=== PATIENT | female | born 1990 | race Caucasian/White ===

== ENCOUNTER 2018-09-13 05:27 | Day surgery (SDC) | payer OTHER ==
[2018-09-12 08:45] VITALS: BMI 27.4
[2018-09-13] MEDS ORDERED: LIDOCAINE HCL/PF 2% SDV 5ML VIAL ONE (15:35)
[2018-09-13] MEDS ORDERED: PROPOFOL 20 ML ONE (15:35)
[2018-09-13] MEDS ORDERED: MIDAZOLAM HCL 2 MG/2 ML SINGLE DOSE VIAL ONE (15:36)
--- NOTE | 2018-09-13 15:41 | HP ---
Past Medical History - Primary Care Physician PCP:: Jordi Napoles - Admission Chief Complaint: 28yo P0 with enlarging uterine mass, likely submucous myoma, admitted for hysteroscopy and excision of myoma. 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: Alzheimer's, CVA, Dementia, Migraine, Multiple Sclerosis, Peripheral Neuropathy, Parkinson's, Seizure, Syncope, TIA, Vertigo, Other Cardiovascular: No: AFIB, Aneurysm, Aortic Insufficiency, Aortic Stenosis, CAD, CHF, Deep Vein Thrombosis, HTN, Hyperlipdemia, [place], Mitral Insufficiency, Mitral Stenosis, Murmur, Pulmonary Hypertension, Other Pulmonary: No: Asthma, Bronchitis, Cancer, COPD, O2 Dependent, Pneumonia, Previously Intubated, Pulmonary Embolus, Pulmonary Fibrosis, Sleep Apnea, Other Gastrointestinal: No: Ascites, Cancer, Constipation, Crohn's Disease, Diverticulitis, Diverticulosis, Esophageal Varices, Gastritis, GERD, GI Bleed, Hemorrhoids, Hiatal Hernia, Inflamatory Bowel Disease, Irritable Bowel Disease, Pancreatitis, Peptic Ulcer Disease, Ulcerative Colitis, Other Hepatobiliary: No: Cirrhosis, Cholelithiasis, Cholecystitis, Choledocholithiasis , Hepatitis A, Hepatitis B, Hepatitis C, Other Renal/: No: Renal Failure, Renal Inusuff, BPH, Cancer, Hematuria, Hemodialysis , Neurogenic Bladder, Renal Calculi, UTI, Other Reproductive: Yes: Fibroids ...: 0 ...Para: 0 Heme/Onc: No: Anemia, B12 Deficiency, Bleeding Disorder, Cancer, Current Chemotherapy, Current Radiation Therapy, Hemochromatosis, Hypercoaguable State, Myeloproliferative Synd, Sickle Cell Disease, Sickle Cell Trait, Thrombocytopenia, Other Infectious Disease: No: AIDS, C-Diff, Herpes Zoster, HIV, MRSA, STD's, Tuberculosis, VREF, Other Psych: No: Addictions, Anxiety, Bipolar, Depression, Panic, Psychosis, Schizophrenia, Other Rheumatology: No: Fibromyalgia, Gout, Lupus, Rheumatoid Arthritis, Sarcoidosis, Vasculitis, Other ENT: No: Allergic Rhinitis, Sinusitis, Other Endocrine: No: Ricky's Disease, Livingston's Disease, Diabetes Insipidus, Diabetes Mellitus, Hyperparathyroidism, Hyperthyroidism, Hypothyroidism, Osteopenia, SIADH, Other Dermatology: No: Basal Cell, Cellulitis, Eczema, Melanoma, Psoriasis, Squamous Cell, Other - Past Surgical History Hx Myomectomy: Yes Hx Transabdominal Cerclage: No - Smoking History Smoking history: Never smoked Have you smoked in the past 12 months: No Aproximately how many cigarettes per day: 0 - Alcohol/Substance Use Hx Alcohol Use: No History of Substance Use: reports: None - Social History Usual Living Arrangement: Yes: Alone ADL: Independent History of Recent Travel: No Home Medications - Allergies Allergies/Adverse Reactions: Allergies Allergy/AdvReac Type Severity Reaction Status Date / Time No Known Drug Allergies Allergy Verified 09/13/18 15:06 - Home Medications Home Medications: Ambulatory Orders NK [No Known Home Medication] 09/12/18 Family Disease History - Family Disease History Family History: Unremarkable Review of Systems - Review of Systems Constitutional: reports: No Symptoms Eyes: reports: No Symptoms HENT: reports: No Symptoms Neck: reports: No Symptoms Cardiovascular: reports: No Symptoms Respiratory: reports: No Symptoms Gastrointestinal: reports: No Symptoms Genitourinary: reports: No Symptoms Breasts: reports: No Symptoms Reported Musculoskeletal: reports: No Symptoms Integumentary: reports: No Symptoms Neurological: reports: No Symptoms Endocrine: reports: No Symptoms Hematology/Lymphatic: reports: No Symptoms Psychiatric: reports: No Symptoms Pain Intensity: 0 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 Vital Signs: Vital Signs Temperature 98.3 F 09/13/18 15:01 Pulse Rate 65 09/13/18 15:01 Respiratory Rate 20 09/13/18 15:01 Blood Pressure 113/73 09/13/18 15:01 O2 Sat by Pulse Oximetry (%) 100 09/13/18 15:00 Constitutional: Yes: Well Nourished, No Distress, Calm Eyes: Yes: WNL, Conjunctiva Clear, EOM Intact HENT: Yes: WNL, Atraumatic, Normocephalic Neck: Yes: WNL, Supple, Trachea Midline Cardiovascular: Yes: WNL, Regular Rate and Rhythm Respiratory: Yes: WNL, Regular, CTA Bilaterally Gastrointestinal: Yes: WNL ...Rectal Exam: Yes: Deferred Renal/: Yes: WNL Pelvis: Yes: WNL External Genitalia: Yes: Normal Internal Exam Deferred: No Vaginal Exam: Yes: Normal, Bleeding (menses) Cervix: Yes: Normal Uterus: Yes: Normal Adnexa: Normal: Left, Right Breast(s): Yes: WNL Musculoskeletal: Yes: WNL Extremities: Yes: WNL Edema: No Integumentary: Yes: WNL Neurological: Yes: WNL, Alert, Oriented ...Motor Strength: WNL Psychiatric: Yes: WNL, Alert, Oriented Imaging - Results Ultrasound: Report Reviewed Assessment/Plan 28yo P1 with fibroid uterus, menorrhagia admitted for hysteroscopy, resection of myoma(s), and D&C. We had discussed the risks, benefits, alternatives of surgery at length including but not limited to infection, bleeding, scarring, perforation, amenorrhea, infertility, hysterectomy, etc. The pt verbalized understanding and requested to proceed with surgery. I emphasized that all surgeries have risks and no guarantees can be provided
[2018-09-13] MEDS ORDERED: ceFAZolin SODIUM 1 GM VIAL ONE (15:52)
[2018-09-13] MEDS ORDERED: DEXAMETHASONE SOD PHOSPHATE 4 MG/1 ML VIAL ONE (15:53)
[2018-09-13] MEDS ORDERED: ceFAZolin SODIUM 1 GM VIAL IVPB ONE (15:54)
[2018-09-13] MEDS ORDERED: ONDANSETRON 4 MG/2 ML VIAL IVPUSH PRN (16:41)
[2018-09-13] MEDS ORDERED: oxyCODONE HCL 5 MG TABLET PO PRN (16:41)
[2018-09-13] MEDS ORDERED: PROMETHAZINE HCL 25 MG/1 ML VIAL IVPUSH PRN (16:41)
[2018-09-13] MEDS ORDERED: LACTATED RINGERS SOLUTION 1,000 ML IV SCH (16:45)
--- NOTE | 2018-09-13 18:22 | OP ---
Operative Note - Note: Operative Date: 09/13/18 Pre-Operative Diagnosis: Menorrhagia, submucosal fibroids Operation: Hysteroscopy, resection of submucosal fibroids x 2 Findings: Submucosal fibroids x 2 Post-Operative Diagnosis: Same as Pre-op Surgeon: Jordi Napoles Anesthesiologist/CATTLE FEEDER: Nicolette Stevens Anesthesia: General Specimens Removed: Uterine fibroids Estimated Blood Loss (mls): 10 Blood Volume Replaced (mls): 0 Fluid Volume Replaced (mls): 300 Operative Report Dictated: Yes
[2018-09-13 20:19] VITALS: BP 117/67; PULSE 62; TEMP 98
--- NOTE | 2018-09-14 09:29 | OP ---
DATE OF OPERATION: 09/13/2018 PREOPERATIVE DIAGNOSIS: Menorrhagia, submucosal fibroids. POSTOPERATIVE DIAGNOSIS: Menorrhagia, submucosal fibroids. PROCEDURE: Hysteroscopy, resection of submucosal fibroids (hysteroscopic myomectomy). SURGEON: Peggy Castro MD ANESTHESIOLOGIST: Nicolette Stevens MD ANESTHESIA: General. COMPLICATIONS: None. ESTIMATED BLOOD LOSS: 10 mL. INTRAVENOUS FLUIDS: 300 mL. PATHOLOGY: Fragments of submucosal fibroids. FINDINGS: Examination under anesthesia revealed a small anteverted uterus. Hysteroscopy revealed 2 submucosal fibroids protruding from the dorsal uterine wall. Once the myomectomy was completed, a normal uterine cavity was observed. DESCRIPTION OF PROCEDURE: The patient was met preoperatively. Risks, benefits, and alternatives of surgery were discussed in details. All questions were answered. The patient was then brought to the OR with IV running. She was placed on the surgical table in the supine position. General anesthesia was achieved without difficulty. The patient was then placed in a dorsal lithotomy position using adjustable Erik stirrups. The patient was examined under anesthesia with the findings as described above. The time-out procedure was then conducted as per standard protocol. The patient was prepped and draped in the usual sterile fashion. A weighted speculum was introduced inside the vagina with good visualization of the cervix. The anterior cervical lip was grasped with a single-tooth tenaculum. The cervical os was dilated to accommodate a size 15 Luna dilator. A hysteroscope was then introduced gently through the cervical os and into the uterine cavity. Survey of the uterine cavity revealed 2 submucosal fibroids on the dorsal wall of the uterus. A Symphion hysteroscopic resectoscope was then used to completely resect both fibroids. Good hemostasis was noted. Once the procedure was completed, a normal uterine cavity was noted. Additional hysteroscopy confirmed good hemostasis. All of the instruments were then removed from the patient. Once again, hemostasis was confirmed. Sponge, lap, and needle counts were correct. The patient was returned to supine position. She was then transferred to recovery room in stable condition and awake. PEGGY CASTRO M.D. [id number]
--- NOTE | 2018-09-15 18:29 | PATH ---
Surgical Pathology Report Patient Name: PUSHPA REYES [facility]. Rec. #: [id number] /Age/Gender: 1990 (Age: 28) / F Account: [id number] Location: [facility] SURGICAL Taken: 09/13/2018 Received: 09/14/2018 Reported: 09/15/2018 Physicians: Jordi Napoles M.D. Specimen(s) Received ENDOMETRIAL FIBROIDS Clinical History Leiomyoma of uterus Final Diagnosis ENDOMETRIAL FIBROIDS, HYSTEROSCOPY WITH RESECTION OF SUBMUCOUS MYOMA: FRAGMENTS OF LEIOMYOMA. SECRETORY ENDOMETRIUM WITH FOCAL GLANDULAR AND STROMAL BREAKDOWN. BENIGN CERVICAL TISSUE. Electronically Signed Jessenia Mejia M.D. Gross Description Received in formalin labeled "endometrial fibroids," is a 5 g, 5.0 x 3.5 x 0.4 cm aggregate of hamilton tissue fragments, consistent with morcellated fibroids. The specimen is entirely submitted in 3 cassettes. /09/14/2018 saudi09/14/2018
== END 2018-09-13 18:50 | disposition home or self-care (01) ==
LOC: JASU-SURG 05:27
PROVIDERS: ATTEND Obstetrics & Gynecology
PROC: 0UB98ZZ Excision of Uterus, Via Natural or Artificial Opening Endoscopic (ICD-10-PCS; principal; 2018-09-13 16:00)
DX: D25.0 Submucous leiomyoma of uterus (principal); N92.0 Excessive and frequent menstruation with regular cycle
CPT/HCPCS: 88305-TC; 94760

== ENCOUNTER 2023-11-11 04:55 | Day surgery (SDC) | payer OTHER ==
[2023-11-10 16:13] VITALS: BMI 27.3
[2023-11-11 12:13] LABS: BASO % 0.7 % (0-2.0); EOS % 3.4 % (0-4.5); HEMATOCRIT 26.5 % (32.4-45.2); HEMOGLOBIN 8.4 GM/dL (10.7-15.3); MCH 25.9 pg (25.7-33.7); MCHC 31.8 g/dl (32.0-36.0); MEAN CELL VOLUME 81.3 fl (80-96); MEAN PLT VOLUME 7.3 fl (7.5-11.1); MONO % 6.6 % (3.8-10.2); NEUT % 63.3 % (42.8-82.8); PLATELET COUNT 349 10^3/uL (134-434); RBC 3.26 M/mm3 (3.60-5.2); RDW 27.1 % (11.6-15.6); WHITE BLOOD COUNT 6.1 K/mm3 (4.0-10.0)
[2023-11-11 12:18] LABS: INR 0.96 (0.83-1.09); PROTHROMBIN TIME (PATIENT) 11.1 SEC (9.7-13.0)
[2023-11-11 12:20] LABS: ACTIVATED PTT 28.1 SECONDS (25.2-36.5)
[2023-11-11 12:27] LABS: CHLORIDE 112 mmol/L (98-107); POTASSIUM 4.4 mmol/L (3.5-5.1); SODIUM 143 mmol/L (136-145)
[2023-11-11 12:29] LABS: ANION GAP 6 mmol/L (4-13); BLOOD UREA NITROGEN 4.5 mg/dL (7-18); CALCIUM 8.9 mg/dL (8.5-10.1); CO2 26 mmol/L (21-32); GLUCOSE,RANDOM 83 mg/dL (74-106)
[2023-11-11 12:31] LABS: ALBUMIN 3.2 g/dl (3.4-5.0)
[2023-11-11 12:33] LABS: CREATININE 0.7 mg/dL (0.55-1.3); SGOT/AST 10 U/L (15-37)
[2023-11-11 12:34] LABS: BILIRUBIN,TOTAL 0.4 mg/dL (0.2-1); SGPT/ALT 15 U/L (13-61)
[2023-11-11 12:35] LABS: ALK PHOS 31 U/L (45-117)
[2023-11-11 12:36] LABS: TOT PROT 6.3 g/dl (6.4-8.2)
[2023-11-11 12:54] LABS: ANISOCYTOSIS 2+; MACROCYTOSIS 1+
[2023-11-11] MEDS ORDERED: PROPOFOL 20 ML ONE ×2 (13:31→16:02)
[2023-11-11] MEDS ORDERED: DEXAMETHASONE SOD PHOSPHATE 4 MG/1 ML VIAL ONE ×2 (13:31→14:44)
[2023-11-11] MEDS ORDERED: MIDAZOLAM HCL 2 MG/2 ML SINGLE DOSE VIAL ONE (13:31)
[2023-11-11] MEDS ORDERED: LIDOCAINE HCL 2% 100 MG/5 ML DISP.SYRIN ONE (13:31)
[2023-11-11] MEDS ORDERED: CEFAZOLIN 2 GM in DEXTROSE 5%-WATER - 100 ML IVPB ONE (14:33)
[2023-11-11] MEDS ORDERED: TRANEXAMIC ACID 1000 MG/10 ML VIAL IVPUSH ONE (14:33)
[2023-11-11] MEDS: ceFAZolin SODIUM 1 GM VIAL IVPB ONE (14:40)
[2023-11-11] MEDS ORDERED: ceFAZolin SODIUM 1 GM VIAL ONE (14:44)
[2023-11-11] MEDS ORDERED: TRANEXAMIC ACID 1000 MG/10 ML VIAL ONE (14:44)
[2023-11-11] MEDS ORDERED: KETOROLAC TROMETHAMINE 30 MG/1 ML VIAL ONE (15:22)
[2023-11-11] MEDS ORDERED: ONDANSETRON 4 MG/2 ML VIAL ONE ×2 (15:22→16:38)
[2023-11-11] MEDS ORDERED: oxyCODONE HCL 5 MG TABLET PO PRN (15:51)
[2023-11-11] MEDS ORDERED: ACETAMINOPHEN INJECTION 100 ML IVPB ONE (15:56)
[2023-11-11] MEDS ORDERED: LACTATED RINGERS SOLUTION 1,000 ML IV SCH (16:00)
[2023-11-11] MEDS: ONDANSETRON 4 MG/2 ML VIAL IVPUSH PRN (16:41)
[2023-11-11] MEDS ORDERED: PROMETHAZINE HCL 25 MG/1 ML VIAL ONE (16:46)
[2023-11-11] MEDS: PROMETHAZINE HCL 25 MG/1 ML VIAL IVPB PRN (16:55)
[2023-11-11 19:35] VITALS: RESP 18
[2023-11-11 19:41] VITALS: BP 120/66; PULSE 68; TEMP 97.5
== END 2023-11-11 19:30 | disposition home or self-care (01) ==
LOC: JASU-SURG 04:55
PROVIDERS: ATTEND Obstetrics & Gynecology
PROC: 0UB98ZZ Excision of Uterus, Via Natural or Artificial Opening Endoscopic (ICD-10-PCS; principal; 2023-11-11 14:00)
DX: N92.1 Excessive and frequent menstruation with irregular cycle (principal); D25.9 Leiomyoma of uterus, unspecified; D64.9 Anemia, unspecified
CPT/HCPCS: 36415; 80053; 84702; 85025; 85610; 85730; 86850; 86900; 86901; 88305-TC; 94760; J0131